=== PATIENT | male | born 1955 | race Caucasian/White ===

== ENCOUNTER → 2018-09-18 | Outpatient (CLI) | payer BC ==
[~2018-09-18] MED LIST: FISH OIL CONC1000 MG PO; IBUPROFEN400 MG PO; MUCINEX 60600 MG/TAB PO; NASONEX SPRAY
== END ==
LOC: COL.RAD 08:29
DX: J32.0 Chronic maxillary sinusitis (principal)
CPT/HCPCS: A9585